=== PATIENT | male | born 1990 | race African-American/Black ===

== ENCOUNTER 2018-04-10 07:04 | Emergency (ER) | payer MEDICAID ==
[~2018-04-10] VITALS: Ht 193 cm; Wt 99.1 kg
[2018-04-10 08:26] VITALS: BP 151/78
[2018-04-10] MEDS ORDERED: LIDOCAINE 1% 10 ML VIAL INJ ONE (08:45)
== END 2018-04-10 10:10 | disposition home or self-care (01) ==
LOC: EMS 07:05
DX: S61.412A Laceration without foreign body of left hand, initial encounter (principal); E11.9 Type 2 diabetes mellitus without complications; F17.210 Nicotine dependence, cigarettes, uncomplicated; R03.0 Elevated blood-pressure reading, without diagnosis of hypertension; W01.110A Fall on same level from slipping, tripping and stumbling with subsequent striking against sharp glass, initial encounter; Y93.89 Activity, other specified; Y92.89 Other specified places as the place of occurrence of the external cause; Y99.8 Other external cause status
CPT/HCPCS: 12002; 99283; 99406; J3490

== ENCOUNTER 2019-05-21 02:29 | Emergency (ER) | payer MEDICAID ==
[~2019-05-21] VITALS: Ht 190.5 cm; Wt 100.0 kg
[2019-05-21 02:32] VITALS: BP 145/77
== END 2019-05-21 03:23 | disposition left against medical advice (07) ==
LOC: EMS 02:29
DX: R10.9 Unspecified abdominal pain (principal); Z53.21 Procedure and treatment not carried out due to patient leaving prior to being seen by health care provider

== ENCOUNTER 2020-10-15 17:18 | Emergency (ER) | payer MEDICAID, OTHER ==
[~2020-10-15] VITALS: Ht 185.4 cm; Wt 110.0 kg
[2020-10-15 17:28] VITALS: BP 125/66
[2020-10-15 18:51] LABS: BASOPHILS % (AUTO) 0.7 % (0.0-2.0); EOSINOPHILS % (AUTO) 1.3 % (1.0-6.0); HEMATOCRIT 43.1 % (41-53); HEMOGLOBIN 14.2 g/dL (13.5-17.5); LYMPHOCYTES # (AUTO) 2.1 K/uL (1.0-4.8); LYMPHOCYTES % (AUTO) 34.9 % (22.0-44.0); MEAN CORPUSCULAR HEMOGLOBIN 28.9 pg (26.0-34.0); MEAN CORPUSCULAR HGB CONC 32.9 G/dL (31.0-37.0); MEAN CORPUSCULAR VOLUME 88 fL (80-100); MONOCYTES # (AUTO) 0.5 K/uL (0.1-1.0); MONOCYTES % (AUTO) 8.5 % (2.0-9.0); NEUTROPHILS # (AUTO) 3.3 K/uL (1.8-7.7); NEUTROPHILS % (AUTO) 54.6 % (40.0-70.0); PLATELET COUNT (AUTO) 251 K/uL (150-450); RED CELL DISTRIBUTION WIDTH 13.3 % (11.5-14.5)
[2020-10-15 18:59] LABS: ANION GAP 6 mmol/L (8-16); CALCIUM, TOTAL 9.1 mg/dL (8.8-10.5); CARBON DIOXIDE 30 mmol/L (22-29); CHLORIDE 105 mmol/L (98-107); CREATININE 1.11 mg/dL (0.60-1.30); GLOMERULAR FILTR. RATE CALC > 60 mL/min (>60); GLUCOSE,RANDOM 89 mg/dL (70-110); POTASSIUM 4.5 mmol/L (3.5-5.1); SODIUM SERUM 141 mmol/L (136-145); UREA NITROGEN, BLOOD 15 mg/dL (7-18)
[2020-10-15 19:05] LABS: ALANINE AMINOTRANSFERASE 30 U/L (12-78); ALBUMIN 4.1 g/dL (3.4-5.0); ALKALINE PHOSPHATASE 90 U/L (46-116); ASPARTATE AMINOTRANSFERASE 25 U/L (15-37); BILIRUBIN,TOTAL 0.2 mg/dL (0.1-1.0); LIPASE 59 U/L (73-393); TOTAL PROTEIN, SERUM 7.5 g/dL (6.4-8.2)
[2020-10-15 19:36] LABS: APPEARANCE,URINE CLEAR (CLEAR); BILIRUBIN,URINE NEGATIVE (NEGATIVE); GLUCOSE, URINE (UA) NEGATIVE (NEGATIVE); KETONES,URINE NEGATIVE (NEGATIVE); LEUKOCYTE ESTERASE ,URINE NEGATIVE (NEGATIVE); NITRATE,URINE NEGATIVE (NEGATIVE); OCCULT BLOOD,URINE NEGATIVE (NEGATIVE); PROTEIN,URINE NEGATIVE (NEGATIVE); UROBILINOGEN,URINE 0.2 mg/dL (<=1.0)
[2020-10-15] MEDS ORDERED: KETOROLAC TROMETHAMINE 30 MG/ML VIAL IM ONE (19:45)
[2020-10-15] MEDS ORDERED: ACETAMINOPHEN 500 MG TABLET PO ONE (19:45)
[2020-10-15] MEDS ORDERED: CYCLOBENZAPRINE HCL 10 MG TABLET PO ONE (19:45)
[2020-10-15] MEDS ORDERED: LIDOCAINE 5% TRANSDERMAL PATCH TD ONE (19:45)
== END 2020-10-15 20:11 | disposition home or self-care (01) ==
LOC: EMS 17:25
DX: S29.012A Strain of muscle and tendon of back wall of thorax, initial encounter (principal); F17.210 Nicotine dependence, cigarettes, uncomplicated; X50.0XXA Overexertion from strenuous movement or load, initial encounter; Y93.89 Activity, other specified; Y92.89 Other specified places as the place of occurrence of the external cause; Y99.8 Other external cause status
CPT/HCPCS: 36415; 80053; 81003; 83690; 85025; 96372; 99284; J1885

== ENCOUNTER 2021-02-16 21:44 | Emergency (ER) | payer OTHER ==
[~2021-02-16] VITALS: Ht 193 cm; Wt 128.0 kg
[2021-02-16] MEDS ORDERED: BACITRACIN 0.9 GM PACKET OINTMENT TP ONE (23:15)
[2021-02-16] MEDS ORDERED: ACETAMINOPHEN 500 MG TABLET PO ONE (23:15)
[2021-02-16] MEDS ORDERED: IBUPROFEN 600 MG TABLET PO ONE (23:15)
[2021-02-17 03:45] VITALS: BP 63/66
== END 2021-02-17 04:35 | disposition home or self-care (01) ==
LOC: EMS 21:46
DX: S81.012A Laceration without foreign body, left knee, initial encounter (principal); S60.512A Abrasion of left hand, initial encounter; S60.222A Contusion of left hand, initial encounter; M54.2 Cervicalgia; V29.9XXA Motorcycle rider (driver) (passenger) injured in unspecified traffic accident, initial encounter; Y93.89 Activity, other specified; Y92.89 Other specified places as the place of occurrence of the external cause; Y99.8 Other external cause status
CPT/HCPCS: 12001; 99284; 73130-TC; Z7502; Z7610